=== PATIENT | male | born 1965 | race American Indian/Alaskan Native ===

== ENCOUNTER 2017-01-08 00:47 | Observation (INO) | payer OTHER ==
[2017-01-08 01:32] LABS: Hematocrit 51 % (42-52); Hemoglobin 17.4 g/dl (14.0-18.0); Mean Corpuscular HGB Conc 34 g/dl (31-36); Mean Corpuscular Hemoglobin 31 pg (27-31); Mean Corpuscular Volume 91 fL (80-94); Mean Platelet Volume 8 um3 (7.4-10.4); Red Blood Count 5.63 10^6/ul (4.0-5.4); Red Cell Distribution Width 14 % (10.5-15); White Blood Count 10.5 10^3/ul (3.5-10.8)
[2017-01-08 01:43] LABS: Albumin 4.3 g/dL (3.2-5.2); BUN/Creatinine Ratio 14.1 (8-20); Calcium 10.3 mg/dL (8.6-10.3); EGFR African American 40.8 (>60); EGFR Non-African American 31.7 (>60); Globulin 3.4 g/dL (2-4); Total Bilirubin 0.7 mg/dL (0.2-1.0); Total Protein 7.7 g/dL (6.4-8.9)
[2017-01-08 01:45] LABS: Troponin I 0.01 ng/mL (<0.04)
[2017-01-08 01:46] LABS: Potassium 6.2 mmol/L (3.5-5.0)
[2017-01-08] MEDS ORDERED: Sodium Polystyrene ORAL.SOL* 15 GM/60 ML BTL PO ONE (01:46)
[2017-01-08] MEDS ORDERED: NS 0.9% 500 ML BAG* 500 ML IV ONE (02:07)
[2017-01-08] MEDS ORDERED: Albuterol 2.5 MG/3 ML NEB.SOL* (0.083%) INH PRN (02:42)
[2017-01-08] MEDS ORDERED: Melatonin (NF) 3 MG TAB PO PRN (02:42)
[2017-01-08] MEDS ORDERED: Acetaminophen TAB* 325 MG PO PRN (02:42)
[2017-01-08] MEDS ORDERED: Ondansetron INJ* 2 MG/ML VIAL IV PRN (02:42)
[2017-01-08] MEDS ORDERED: NS 0.9% 1000 ML* 1,000 ML IV SCH (02:45)
[2017-01-08] MEDS: NS 0.9% 1000 ML* 1,000 ML IV SCH ×4 (02:55→21:56)
[2017-01-08 03:00] LABS: Urine Bacteria Absent (Absent); Urine Bilirubin Negative (Negative); Urine Glucose 3+(>=500 mg/dL) (Negative); Urine Nitrite Negative (Negative)
[2017-01-08] MEDS: traMADol TAB* 50 MG PO PRN ×2 (03:58→10:47)
[2017-01-08] MEDS ORDERED: ZOSYN 3.375 GM x ONE DOSE over 30 miuntes IVPB ×2 (04:00)
--- NOTE | 2017-01-08 04:23 | HP ---
H&P (Free Text) History and Physical: PCP: Katelyn Linton MD Date/Time of Evaluation: 01/07/2017 CC: chest pain HPI: Mr Pacheco is a 51YO male HX DM2, HTN, HLD, & YAMILKA who states he was in his usual state of health until this evening when going to be he developed some burning chest discomfort associated with subjective F/C, sweats, generalized weakness, and malaise. He has been exposed to family members recently with a similar illness. He denies open wound, sores, or painful areas of skin. There was no bloody or black content to his emesis. He denies B/U/F of urine or flank pain and state he has been urination a normal volume. PMedHx DM2 HTN HLD YAMILKA prescribed CPAP chronic LBP w/ sciatica gout Ambulatory Orders Allopurinol 300 mg PO DAILY 05/06/12 Fenofibrate 160 mg PO DAILY 05/13/12 Lisinopril & Hydrochlorothiazi [Lisinopril/Hydrochlorothi] 1 tab PO DAILY Magnesium Oxide (mg Supplement [Magnesium] 400 mg PO DAILY 02/24/13 Metformin HCl 1,000 mg PO BID 02/24/13 Hydrocodone/Acetamin 10/325(NF [[place] 10/325 (NF)] 0.5 tab PO QID PRN 05/31/13 Cyclobenzaprine TAB* [Flexeril TAB*] 10 mg PO TID PRN 04/04/14 Lisinopril 01/08/17 Lyrica CAP(*) 01/08/17 Allergies No Known Allergies Allergy (Verified 03/22/16 11:27) PSurgHx back surgery R thumb extensor tendon repair appendectomy hernia repair x2 SocHx: light smoker, occasional alcohol, denies recreational drugs; lives with his ; worked construction; full code status FamHx: positive for DM2 & HTN ROS: as above, otherwise reviewed and all were negative Constitutional: NAD, normally developed, morbidly obese white male vitals: Vital Signs Temp 37.5 C 01/08/17 03:43 Pulse 102 01/08/17 03:43 Resp 22 01/08/17 03:58 BP 99/74 01/08/17 03:43 Pulse Ox 98 01/08/17 03:43 Intake & Output 07/10/2101/07/17 01/08/17 11:59 23:59 11:59 Weight 142.882 kg HEENM: atraumatic; sclera/conjunctiva: non-icteric/clear; hearing: clinically intact; oropharynx: clear, mucosa tacky Neck: soft tissue: no nuchal rigidity; thyroid: normal Pulmonary: clear to auscultation bilaterally, good aeration, no accessory muscle use CV: RR/RR, normal S1S2, no carotid bruit, no jugular venous distention, 2+ B DP/ PT, no edema Abdominal: soft, non-distended, non-tender, no rebound/guarding/rigidity, normoactive bowel sounds, no hepatosplenomegaly or masses, no costovertebral angle tenderness Musculoskeletal: general: grossly intact; gait: stable Integumental: few small erythematous lesions BLE Psychiatric orientation: AA&O to PPS affect: calm mood: cooperative eye contact: fair to good content: reliable responses: timely insight: fair to good Testing: Ambulatory Orders Allopurinol 300 mg PO DAILY 05/06/12 Fenofibrate 160 mg PO DAILY 05/13/12 Lisinopril & Hydrochlorothiazi [Lisinopril/Hydrochlorothi] 1 tab PO DAILY Magnesium Oxide (mg Supplement [Magnesium] 400 mg PO DAILY 02/24/13 Metformin HCl 1,000 mg PO BID 02/24/13 Hydrocodone/Acetamin 10/325(NF [[place] 10/325 (NF)] 0.5 tab PO QID PRN 05/31/13 Cyclobenzaprine TAB* [Flexeril TAB*] 10 mg PO TID PRN 04/04/14 Lisinopril 01/08/17 Lyrica CAP(*) 01/08/17 ECG, personally reviewed: sinus tachycardia rate 105, no ischemia, Q-waves in II /III/AVF CXR, personally reviewed: no acute process Impression: 51M presenting with sepsis syndrome of uncertain source DIAGNOSIS & PLAN Primary sepsis of unknown source : IV piperacillin/tazobactam : IVFs : blood & urine CXs : supportive care chest discomfort, doubt ACS : telemetry : trend troponin Secondary DM2 : check A1c : consistent carb diet : basal/bolus/correctional insulin HTN : review meds once reconciled HLD : review meds once reconciled YAMILKA : prescribed CPAP chronic LBP w/ sciatica : review meds once reconciled gout : review meds once reconciled Admission Rational: inpatient for sepsis of unknown origin DVTp: heparin SQ Code Status: full HCP:
[2017-01-08 05:14] LABS: Hematocrit 47 % (42-52); Hemoglobin 15.7 g/dl (14.0-18.0); Mean Corpuscular HGB Conc 33 g/dl (31-36); Mean Corpuscular Hemoglobin 31 pg (27-31); Mean Corpuscular Volume 92 fL (80-94); Mean Platelet Volume 8 um3 (7.4-10.4); Red Cell Distribution Width 14 % (10.5-15)
[2017-01-08 05:19] LABS: Add Diff/Slide Review? Slide Review Added; Comments Flag Yes
[2017-01-08 05:27] LABS: BUN/Creatinine Ratio 15.6 (8-20); Calcium 9.6 mg/dL (8.6-10.3); EGFR African American 36.2 (>60); EGFR Non-African American 28.1 (>60); Potassium 5.5 mmol/L (3.5-5.0)
[2017-01-08] MEDS: Omeprazole CAP* 20 MG PO SCH (07:41)
--- NOTE | 2017-01-08 07:50 | RAD ---
INDICATION: Chest pain COMPARISON: Chest x-ray dated August 05, 2006 TECHNIQUE: PA and lateral views of the chest were obtained. FINDINGS: The heart and mediastinum are normal in size and contour. The lungs are grossly clear. There is no evidence of large pleural effusion. Degenerative changes of the thoracic spine includes loss of intervertebral disc height and multilevel anterior marginal osteophyte formation. There is no radiographic evidence of free air beneath the diaphragm IMPRESSION: No radiographic evidence of acute cardiopulmonary disease.
[2017-01-08] MEDS: Insulin LISPRO* 1 UNITS UNIT SUBCUT SCH ×7 (08:43→20:57)
[2017-01-08] MEDS: Docusate CAP* 100 MG PO SCH ×2 (08:44→20:56)
[2017-01-08 14:54] LABS: BUN/Creatinine Ratio 22.1 (8-20); Calcium 8.3 mg/dL (8.6-10.3); EGFR African American 63.9 (>60); EGFR Non-African American 49.7 (>60); Potassium 3.7 mmol/L (3.5-5.0)
--- NOTE | 2017-01-08 15:28 | PN ---
Subjective Date of Service: 01/08/17 Interval History: Feels better today but still fatigued. No pain Minimal nausea this AM but no emesis. Loose stools this AM after kayexalate Objective Active Medications: Acetaminophen (Tylenol Tab*) 650 mg PO Q6H PRN PRN Reason: FEVER/PAIN Albuterol (Ventolin 2.5 Mg/3 Ml Neb.Lena*) 2.5 mg INH Q2H PRN PRN Reason: SOB/WHEEZING Docusate Sodium (Colace Cap*) 200 mg PO BID [facility] Last Admin: 01/08/17 08:44 Dose: Not Given Heparin Sodium (Porcine) (Heparin Vial(*)) 5,000 units SUBCUT Q8HR [facility] Sodium Chloride (Ns 0.9% 1000 Ml*) 1,000 mls @ 150 mls/hr IV PER RATE [facility] Stop: 01/09/17 19:39 Last Admin: 01/08/17 13:41 Dose: 150 mls/hr Insulin Glargine (Lantus(*)) 34 units SUBCUT 2100 [facility] Stop: 01/09/17 20:00 Insulin Human Lispro (Humalog*) 0 units SUBCUT AC [facility] PRN Reason: Protocol Last Admin: 01/08/17 12:49 Dose: 6 units Insulin Human Lispro (Humalog*) 0 units SUBCUT ACHS [facility] PRN Reason: Protocol Last Admin: 01/08/17 12:49 Dose: 3 units Melatonin (Melatonin (Nf)) 3 mg PO BEDTIME PRN; Protocol PRN Reason: Sleep Omeprazole (Prilosec Cap*) 20 mg PO DAILY@0600 [facility] Last Admin: 01/08/17 07:41 Dose: 20 mg Ondansetron HCl (Zofran Inj*) 4 mg IV Q6H PRN PRN Reason: NAUSEA Tramadol HCl (Ultram*) 50 mg PO Q6H PRN PRN Reason: PAIN Last Admin: 01/08/17 10:47 Dose: 50 mg Vital Signs 01/08/17 01/08/17 01/08/17 03:40 03:43 03:58 Temperature 99.5 F 99.5 F Pulse Rate 102 102 Respiratory 16 16 22 Rate Blood Pressure 99/74 99/74 (mmHg) O2 Sat by Pulse 98 98 Oximetry 01/08/17 01/08/17 01/08/17 05:58 07:22 08:30 Temperature 98.9 F Pulse Rate 99 Respiratory 18 24 Rate Blood Pressure 86/59 102/60 (mmHg) O2 Sat by Pulse 95 Oximetry 01/08/17 01/08/17 01/08/17 08:40 10:47 11:37 Temperature 99.8 F Pulse Rate 93 90 Respiratory 20 22 20 Rate Blood Pressure 98/56 (mmHg) O2 Sat by Pulse 95 100 Oximetry 01/08/17 12:47 Temperature Pulse Rate Respiratory 16 Rate Blood Pressure (mmHg) O2 Sat by Pulse Oximetry Oxygen Devices in Use Now: None Appearance: NAD Eyes: No Scleral Icterus, PERRLA Ears/Nose/Mouth/Throat: Clear Oropharnyx, Mucous Membranes Moist Neck: NL Appearance and Movements; NL JVP, Trachea Midline Respiratory: Symmetrical Chest Expansion and Respiratory Effort, Clear to Auscultation Cardiovascular: NL Sounds; No Murmurs; No JVD, RRR Abdominal: NL Sounds; No Tenderness; No Distention Lymphatic: No Cervical Adenopathy Extremities: No Edema Skin: No Rash or Ulcers Neurological: Alert and Oriented x 3, NL Muscle Strength and Tone Result Diagrams: 01/08/17 04:48 01/08/17 14:16 Assess/Plan/Problems-Billing Assessment: 51 yo M h/o HTN, HLD, DM2, YAMILKA, gout p/w N/V, evidence of dehydration and AKF - Patient Problems (1) Acute kidney failure Comment: Contacted Dr. Linton's office. Last creatinine was 0.8 in September Creatinine improving with IV fluids no urinary retention, suspect dehydration c/w normal saline x 2 additional liters in setting of N/V and recent sick contact with grandson with similar symptoms suspect gastroenteritis contributing to dehydration and renal failure (2) Hyperkalemia Comment: In setting of AKF Resolved with calcium and kayexalate (3) Lactic acidosis Comment: Suspect 2/2 dehydration, AKF, and metformin use with new AKF c/w fluids and recheck in AM (4) Hypertension Comment: Low BP while holding meds continue to trend (5) Diabetes Comment: Basal and bolus insulin hba1c 8.2% (6) DVT prophylaxis Comment: HSQ
[2017-01-08] MEDS ORDERED: Insulin GLARGINE(*) 1 UNITS UNIT SUBCUT SCH (21:00)
[2017-01-09 05:50] LABS: Hematocrit 41 % (42-52); Hemoglobin 13.9 g/dl (14.0-18.0); Mean Corpuscular HGB Conc 34 g/dl (31-36); Mean Corpuscular Hemoglobin 31 pg (27-31); Mean Corpuscular Volume 91 fL (80-94); Mean Platelet Volume 8 um3 (7.4-10.4); Red Blood Count 4.47 10^6/ul (4.0-5.4); Red Cell Distribution Width 14 % (10.5-15); White Blood Count 4.5 10^3/ul (3.5-10.8)
[2017-01-09] MEDS: Omeprazole CAP* 20 MG PO SCH (05:57)
[2017-01-09] MEDS: Heparin VIAL(*) 5000 UNITS/ML VIAL (FIVE THOUSAND) SUBCUT SCH ×2 (05:57→14:58)
[2017-01-09 06:04] LABS: BUN/Creatinine Ratio 18.1 (8-20); Calcium 8.5 mg/dL (8.6-10.3); EGFR African American 108.8 (>60); EGFR Non-African American 84.6 (>60); Potassium 3.5 mmol/L (3.5-5.0)
[2017-01-09] MEDS: Insulin LISPRO* 1 UNITS UNIT SUBCUT SCH ×4 (08:53→13:13)
[2017-01-09] MEDS: Docusate CAP* 100 MG PO SCH (08:54)
[2017-01-09 11:48] VITALS: BP 106/74
--- NOTE | 2017-01-10 01:28 | DS ---
CC: Dr. Anna Linton* DISCHARGE SUMMARY: DATE OF ADMISSION: 01/07/17 DATE OF DISCHARGE: 01/09/17 PRIMARY CARE PROVIDER: Dr. Anna Linton. PRIMARY DIAGNOSES: 1. Acute kidney failure. 2. Hyperkalemia. SECONDARY DIAGNOSES: Include: 1. Hypertension. 2. Hyperlipidemia. 3. Obstructive sleep apnea. 4. Gout. 5. Type 2 diabetes. 6. Atrial fibrillation. MEDICATIONS ON DISCHARGE: 1. Lisinopril 20 mg daily. 2. Pravachol 80 mg daily. 3. TriCor 160 mg daily. 4. Allopurinol 300 mg daily. 5. Xarelto 20 mg daily. 6. Metformin 1000 mg twice daily. 7. Metoprolol succinate 50 mg daily. 8. Insulin glargine 34 units in the evening. Please note the decreased dose of metoprolol from 100 to 50 mg, discontinuation of hydrochlorothiazide. PERTINENT LABORATORY DATA: Creatinine on presentation 2.2, on discharge 2.94; BUN on presentation 31, peaked at 38, on discharge 17; white blood cell count on discharge 4.8. PERTINENT MICROBIOLOGY: Negative urine culture twice and negative blood culture. PERTINENT IMAGING: Chest x-ray, no evidence for cardiopulmonary disease. HISTORY OF PRESENT ILLNESS AND HOSPITAL COURSE: This is a 51-year-old man, past medical history as outlined in the history of present illness on the day of admission presented to the hospital with subjective fevers, chills, sweats, generalized weakness and malaise, found with acute kidney failure as well as relative hypotension with systolic blood pressures in 90s. The patient was started on Zosyn overnight on the evening of admission, was discontinued the following day with negative blood cultures, urine cultures and absence of leukocytosis and no fevers during the entire course of the hospital stay. The patient was kept in the hospital given his relatively low blood pressures in the low 90s. On his first day of hospital admission and his new diagnosis of acute kidney failure, he retaining urine on a postvoid bladder scan and was treated with crystalloid replacement. With approximately 6 L of fluid over 48 hours, the patient's kidney function completely resolved. He felt back to his baseline. Of note, he had a lactic acidosis of 2.5 on presentation, resolved to 0.6. It was felt that his metformin likely contributed to his lactic acidosis in the setting of acute kidney failure. The patient indicates that he had nausea, vomiting prior to presentation. Suspect that the gastroenteritis contributed to dehydration leading to acute kidney failure as well as hyperkalemia. Potassium on the day of discharge was 3.5. There were no other complications of this patient's hospital stay. Please note on the day of discharge, his blood pressure was ranging 106 to 124 with diastolics in the 70s. For this reason, his metoprolol was cut in half and his hydrochlorothiazide was discontinued on discharge. At followup, please: 1. Please follow up for continued blood pressure control on new blood pressure regimen. 2. Follow up with diabetes control on current regimen. 3. Follow up blood cultures to completion, currently negative at 36 hours. Reasons to return to the hospital included, but not limited to recurrent or worsening symptoms, chills, fevers, night sweats, nausea, vomiting, lightheadedness, loss of consciousness, chest pain, shortness of breath, diarrhea, bleeding from any source, inability to obtain or tolerate his medications were discussed with the patient, he acknowledged understanding. TIME SPENT: Greater than 60 minutes were spent on the discharge of this patient , greater than half was spent [id number] with the patient. [id number]/[facility] #: [id number] JUDY
== END 2017-01-09 16:50 | disposition home or self-care (01) ==
LOC: ED 00:47 → MEDTELE 02:38
PROVIDERS: ADMIT Hospitalist; ATTEND Internal Medicine
DX: N17.9 Acute kidney failure, unspecified (principal); E87.5 Hyperkalemia; E86.0 Dehydration; R07.9 Chest pain, unspecified; E11.9 Type 2 diabetes mellitus without complications; Z79.4 Long term (current) use of insulin; Z79.84 Long term (current) use of oral hypoglycemic drugs; G47.33 Obstructive sleep apnea (adult) (pediatric); M10.9 Gout, unspecified; I48.91 Unspecified atrial fibrillation; I10 Essential (primary) hypertension; R53.81 Other malaise; F17.200 Nicotine dependence, unspecified, uncomplicated; M54.40 Lumbago with sciatica, unspecified side
CPT/HCPCS: 36415; 71020; 80048; 80053; 81003; 81015; 82550; 83036; 83605; 84484; 85025; 87040; 87086; 87641; 93005; 96365; 96366; 96367; 96372; 99283; A9270-GY; G0378; J0610; J1644; J2543

== ENCOUNTER 2018-12-16 12:11 | Emergency (ER) | payer OTHER ==
[2018-12-16 12:33] VITALS: BP 97/71
--- NOTE | 2018-12-16 12:46 | UC ---
General HPI - HPI Summary HPI Summary: Patient's a 53-year-old dominant with complex medical history including atrial fibrillation, hypertension, diabetes, chronic back pain status post a fusion. Patient is on blood pressure medicine as well as Lyrica, Vicodin, and Flexeril for his back. Patient presents today stating for the last 2 days he's had feeling very dizziness. Patient states he notices it mostly when he first stands up however last night he was walking across a chair when he fell because he was dizzy. No injury related to the fall. Patient was able to get up on his own. Patient states he felt with good night's rest to feel better but continues to feel dizzy today. Patient denies having overheated. Patient states he good urine. Patient states this happened once before when his potassium level was very low. Patient also reports she's been having some left- sided chest pain. Patient states it wraps from the front of her back. Patient states he fell 3 weeks ago when he tripped on a fan in the dark and thought maybe interloop. Patient unable to tell me if this chest pain is different than the rib pain but states it is bothering him more frequently. Patient states she's had a diagnosis of angina but is not on nitroglycerin. 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 Patient states he has not taken . Medications reviewed this visit. - History of Current Complaint Chief Complaint: UCDizziness Stated Complaint: DIZZY Time Seen by Provider: 12/16/18 12:30 Hx Obtained From: Patient Pain Intensity: 0 - Allergy/Home Medications Allergies/Adverse Reactions: Allergies Allergy/AdvReac Type Severity Reaction Status Date / Time No Known Allergies Allergy Verified 12/16/18 12:34 PMH/Surg Hx/FS Hx/Imm Hx Previously Healthy: Yes Endocrine History: Diabetes, Dyslipidemia Cardiovascular History: Hypertension, Atrial Fibrillation - Surgical History Surgical History: Yes Surgery Procedure, Year, and Place: Bilateral Inguinal Hernia Repair; Appendectomy; Spinal Fusion L4-L5; Left ACL Reconstruction - Family History Known Family History: Positive: Diabetes - Social History Occupation: Employed Part-time Alcohol Use: Weekly - several times a week Substance Use Type: None Smoking Status (MU): Former Smoker Type: Cigarettes Have You Smoked in the Last Year: No When Did the Patient Quit Smoking/Using Tobacco: One year ago Review of Systems All Other Systems Reviewed And Are Negative: Yes Skin: Positive: Bruising Eyes: Positive: Negative ENT: Positive: Negative Respiratory: Positive: Negative Cardiovascular: Positive: Chest Pain Gastrointestinal: Positive: Negative Genitourinary: Positive: Negative Neurological: Positive: Other - dizziness Physical Exam - Summary Physical Exam Summary: Vital Signs Reviewed: Yes A+Ox3, no distress Eyes: Conjunctiva Clear, ENT: Hearing grossly normal Neck: Positive: Supple Respiratory: Positive: No respiratory distress, No accessory muscle use + CTA throughout no w/r Cardiovascular: RRR nl s1, s2 no m/r CBT <2 sec, no bruits, + mild TTP left anterior chest wall - no crepitus, no bruising (pt unsure is same pain causing chest pain) abd soft + NT, + BS Musculoskeletal Exam: GARCIA x 4 without difficulty Strength Intact, ROM Intact Neurological: Positive: Alert, + sensation throughout Psychological: Positive: Normal Response To Family Skin: Positive: no rash, no ecchymosis Triage Information Reviewed: Yes Vital Signs: Initial Vital Signs Temp 98.4 F 12/16/18 12:30 Pulse 92 12/16/18 12:30 Resp 18 12/16/18 12:30 BP 97/71 12/16/18 12:30 Pulse Ox 99 12/16/18 12:30 Diagnostics - EKG Cardiac Rate: NL Cardiac Rhythm: Sinus: Normal Ectopy: None ST Segment: Normal EKG Comparison: No Significant Change Course/Dx - Course Course Of Treatment: PT presents to reports 2 days of progressive dizzines s- starting with positin changes, now constant. Pt states he has left sided chest pain, extends to back. States fatigue. Pt with h/o simiar when his potassium was "very low" Pt had friend drop him here - otherwise e would have gone to the hospital Vital signs - pt with low BP Pt without focal findings other than reproducible chest pain Will check BG, EKG, IV recommend pt to ED by EMS - pt in agreement - Diagnoses Provider Diagnosis: Dizziness, Hypotension, Chest pain Discharge - Sign-Out/Discharge Documenting (check all that apply): Patient Departure All imaging exams completed and their final reports reviewed: No Studies - Discharge Plan Condition: Stable Disposition: TRANS HIGHER [facility]ARE FAC Referrals: Anna Linton MD [Primary Care Provider] - - Billing Disposition and Condition Condition: STABLE Disposition: Trans Higher Lvl of Care Fac
[2018-12-16] MEDS ORDERED: Aspirin 81 mg CHEW TAB* 81 MG TAB.CHEW PO ONE (12:55)
== END 2018-12-16 13:41 | disposition short-term general hospital (02) ==
LOC: UCEAST 12:11
DX: R42 Dizziness and giddiness (principal); I10 Essential (primary) hypertension; R07.9 Chest pain, unspecified; I48.91 Unspecified atrial fibrillation; E78.5 Hyperlipidemia, unspecified; Z98.1 Arthrodesis status; Z87.891 Personal history of nicotine dependence
CPT/HCPCS: 93005; 99203; A9270-GY; G0463

== ENCOUNTER 2018-12-16 13:43 | Emergency (ER) | payer OTHER ==
[2018-12-16] MEDS ORDERED: NS 0.9% 1000 ML** 1,000 ML IV ONE ×2 (13:58→14:54)
--- NOTE | 2018-12-16 14:04 | ED ---
Dizziness - HPI Summary HPI Summary: Pt is a 53 y/o M presenting to the ED with a chief complaint of dizziness initially onset yesterday. He states his blood pressure is low and he has experienced intermittent dizziness, described as feeling lightheaded, since 12/15. He reports some myalgia from a recent fall, as well as some blurred vision. He denies SOB, N/V/D, and abd pain. He states he took the correct dose of his BP med, 20mg Lisinopril, and that he does not monitor his BP at home. - History Of Current Complaint Chief Complaint: EDDizziness Stated Complaint: DIZZY COMMING FROM CC Time Seen by Provider: 12/16/18 13:49 Hx Obtained From: Patient Onset/Duration: Still Present, Suddenly Timing: Intermittent Episode Lasting - minutes Severity Initially: Moderate Severity Currently: Mild Character: Lightheaded Aggravating Factor(s): Nothing Alleviating Factor(s): Nothing Associated Signs And Symptoms: Positive: Visual Changes - some blurred vision. Negative: Nausea, Vomiting, Diarrhea, SOB, Change In Medication, Blood In Stool - Allergies/Home Medications Allergies/Adverse Reactions: Allergies Allergy/AdvReac Type Severity Reaction Status Date / Time No Known Allergies Allergy Verified 12/16/18 14:37 Home Medications: Home Medications Cyclobenzaprine TAB* [Flexeril 10 MG TAB*] 10 mg PO TID PRN 12/16/18 [History Confirmed 12/16/18] Dulaglutide (NF) [Trulicity (NF)] 0.75 mg SUBCUT WEEKLY 12/16/18 [History Confirmed 12/16/18] Fenofibrate Nanocrystallized [Fenofibrate] 160 mg PO DAILY 12/16/18 [History Confirmed 12/16/18] Hydrocodone/Acetamin 10/325(NF [[place] 10/325 (NF)] 1 tab PO Q6H PRN 12/16/18 [ History Confirmed 12/16/18] Lisinopril TAB* [Prinivil TAB*] 20 mg PO DAILY 12/16/18 [History Confirmed 12/16] Metoprolol Succinate XL TAB* [Toprol XL TAB*] 100 mg PO DAILY 12/16/18 [History Confirmed 12/16/18] Pravastatin (NF) [Pravachol (NF)] 80 mg PO DAILY 12/16/18 [History Confirmed 06/24] Pregabalin CAP(*) [Lyrica CAP(*)] 75 mg PO TID MDD 225mg 12/16/18 [History Confirmed 12/16/18] metFORMIN* [Glucophage 1000 MG TAB *] 1,000 mg PO BID 12/16/18 [History Confirmed 12/16/18] PMH/Surg Hx/FS Hx/Imm Hx Previously Healthy: Yes Endocrine/Hematology History: Reports: Hx Diabetes - Borderline Diabetes Denies: Hx Thyroid Disease Cardiovascular History: Reports: Hx Hypertension - on meds Respiratory History: Denies: Hx Asthma, Hx Chronic Obstructive Pulmonary Disease (COPD) GI History: Denies: Hx Ulcer Musculoskeletal History: Reports: Hx Back Problems, Hx Gout, Other Musculoskeletal History - Chronic Leg Pain Denies: Hx Rheumatoid Arthritis, Hx Osteoporosis Sensory History: Denies: Hx Contacts or Glasses, Hx Hearing Aid Opthamlomology History: Denies: Hx Contacts or Glasses Neurological History: Reports: Other Neuro Impairments/Disorders - CHRONIC PAIN Psychiatric History: Reports: Hx Attention Deficit Hyperactivity Disorder - Attention Deficit Disorder - Surgical History Surgery Procedure, Year, and Place: Bilateral Inguinal Hernia Repair; Appendectomy; Spinal Fusion L4-L5; Left ACL Reconstruction Infectious Disease History: No Infectious Disease History: Reports: Hx of Known/Suspected MRSA Denies: Hx Hepatitis, Hx Human Immunodeficiency Virus (HIV), History Other Infectious Disease, Traveled Outside the [place] in Last 30 Days - Family History Known Family History: Positive: Diabetes - Social History Alcohol Use: Weekly Hx Substance Use: No Substance Use Type: Reports: None Hx Tobacco Use: Yes Smoking Status (MU): Former Smoker Type: Cigarettes Have You Smoked in the Last Year: No Review of Systems Positive: Blurred Vision Negative: Shortness Of Breath Negative: Abdominal Pain, Vomiting, Diarrhea, Nausea Positive: Myalgia All Other Systems Reviewed And Are Negative: Yes Physical Exam - Summary Physical Exam Summary: Appearance: obese, no pain distress Skin: warm, dry, reflects adequate perfusion Head/face: normal Eyes: EOMI, JOSE ENT: mucous membranes moist Neck: supple, non-tender Respiratory: CTA, breath sounds present Cardiovascular: RRR, pulses symmetrical Abdomen: non-tender, soft Bowel Sounds: present Musculoskeletal: normal, strength/ROM intact Neuro: normal, sensory motor intact, A&Ox3 Triage Information Reviewed: Yes Vital Signs On Initial Exam: Initial Vitals Temp Pulse Resp BP Pulse Ox 96.8 F 86 16 96/67 96 12/16/18 13:52 12/16/18 13:52 12/16/18 13:52 12/16/18 13:52 12/16/18 13:52 Vital Signs Reviewed: Yes Diagnostics - Vital Signs Vital Signs Temp Pulse Resp BP Pulse Ox 12/16/18 13:52 96.8 F 86 16 96/67 96 - Laboratory Result Diagrams: 12/16/18 14:28 12/16/18 14:28 Lab Statement: Any lab studies that have been ordered have been reviewed, and results considered in the medical decision making process. - EKG 1421 Cardiac Rate: NL - 81bpm EKG Rhythm: Sinus Rhythm ST Segment: Normal Ectopy: None Summary of EKG Findings: Normal EKG. NSR: 81bpm. Normal [place]. Normal Interval. Normal ST Dizzy Course/Dx - Course Course Of Treatment: Nurse's notes reviewed. 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 He has elevation of creatinine consistent with dehydration/medication acute kidney injury. Patient received 2 L of IV fluids and his blood pressure was about 110 systolic. He ambulated without any lightheadedness. He will discontinue the lisinopril and hold the metformin. Lisinopril was replaced with losartan. He is encouraged to follow-up with his doctor in the next 2 days. - Diagnoses Differential Diagnosis/HQI/PQRI: Medication Reaction, Metabolic Abnormality, Transient Ischemic Attack, Vasovagal Reaction Provider Diagnoses: Acute kidney failure, Dehydration Discharge - Sign-Out/Discharge Documenting (check all that apply): Patient Departure Patient Received Moderate/Deep Sedation with Procedure: No - Discharge Plan Condition: Improved Disposition: HOME Prescriptions: Losartan Potassium [Cozaar] 50 mg PO DAILY #30 tablet Patient Education Materials: Acute Kidney Injury (DC) Forms: *Work Release Referrals: Anna Linton MD [Primary Care Provider] - Additional Instructions: STOP Lisinopril. HOLD your Metformin for 3 days. Drink lots of fluids. Stay out of the heat. Avoid ibuprofen, Aleve and other anti-inflammatory medications. Avoid alcohol. Call your doctor today to schedule prompt follow- up. Off work for the next 2 days. Return if worse, new symptoms, passing out or other concerns. - Billing Disposition and Condition Condition: IMPROVED Disposition: Home - Attestation Statements Document Initiated by Sylviaibale: Yes Documenting Scribe: Kayla Vila Provider For Whom Alannah is Documenting (Include Credential): Delon Sloan MD. Scribe Attestation: Kayla Prakash, scribed for Delon Sloan MD. on 12/16/18 at 1754. Scribe Documentation Reviewed: Yes Provider Attestation: The documentation as recorded by the sylviaibale, Kayla Vila accurately reflects the service I personally performed and the decisions made by , Delon Sloan MD. Status of Scribe Document: Viewed
[2018-12-16 14:33] LABS: Urine Appearance Clear; Urine Bilirubin Negative (Negative); Urine Blood Negative (Negative); Urine Color Yellow; Urine Glucose Negative (Negative); Urine Ketones Negative (Negative); Urine Nitrite Negative (Negative); Urine Protein Negative (Negative); Urine Specific Gravity 1.009 (1.010-1.030); Urine Urobilinogen Negative (Negative)
[2018-12-16 14:36] LABS: ABS Eosinophils 0.3 10^3/ul (0-0.6); ABS Lymphocytes 2.8 10^3/ul (1.0-4.8); ABS Monocytes 0.6 10^3/ul (0-0.8); ABS Neutrophils 7.9 10^3/ul (1.5-7.7); Eosinophil % 2.3 %; Hematocrit 41 % (42-52); Hemoglobin 14.2 g/dL (14.0-18.0); Lymphocyte % 24.1 %; Mean Corpuscular HGB Conc 35 g/dL (31-36); Mean Corpuscular Hemoglobin 31 pg (27-31); Mean Corpuscular Volume 90 fL (80-94); Mean Platelet Volume 8.4 fL (7.4-10.4); Nucleated Red Blood Cells % 0.1; Platelet Count 270 10^3/uL (150-450); Red Blood Count 4.57 10^6 /uL (4.18-5.48); Red Cell Distribution Width 13 % (10-15); White Blood Count 11.6 10^3/uL (3.5-10.8)
[2018-12-16 14:53] LABS: ALT 35 U/L (7-52); AST 26 U/L (13-39); Albumin 4.1 g/dL (3.2-5.2); Albumin/Globulin Ratio 1.4 (1-3); Alkaline Phosphatase 87 U/L (34-104); Anion Gap 10 mmol/L (2-11); BUN/Creatinine Ratio 16.7 (8-20); Blood Urea Nitrogen 27 mg/dL (6-24); CO2 Carbon Dioxide 22 mmol/L (22-32); Calcium 9.9 mg/dL (8.6-10.3); Chloride 98 mmol/L (101-111); Creatine Kinase 174 U/L (10-223); EGFR African American 54.2 (>60); EGFR Non-African American 44.8 (>60); Globulin 2.9 g/dL (2-4); Glucose 100 mg/dL (70-100); Magnesium 1.6 mg/dL (1.9-2.7); Potassium 4.3 mmol/L (3.5-5.0); Sodium 130 mmol/L (135-145)
[2018-12-16 15:25] LABS: Alcohol < 10 mg/dL (<10)
[2018-12-16 16:09] VITALS: BP 104/66
== END 2018-12-16 16:19 | disposition home or self-care (01) ==
LOC: ED 13:43
DX: N17.9 Acute kidney failure, unspecified (principal); E86.0 Dehydration; E11.9 Type 2 diabetes mellitus without complications; I10 Essential (primary) hypertension; Z79.84 Long term (current) use of oral hypoglycemic drugs; Z79.899 Other long term (current) drug therapy; Z87.891 Personal history of nicotine dependence
CPT/HCPCS: 36415; 80053; 80320; 81003; 82550; 83735; 84100; 84484; 85025; 93005; 96360; 96361; 99283; G0480

== ENCOUNTER 2019-04-28 15:39 | Emergency (ER) | payer OTHER ==
[2019-04-28] MEDS ORDERED: methylPREDNISolone 125 MG* 2 ML VIAL IV ONE (15:44)
[2019-04-28] MEDS ORDERED: diPHENhydraMINE IV* 50 MG/ML 1 ml VIAL (BENADRYL) IV ONE (15:44)
[2019-04-28] MEDS ORDERED: Famotidine IV* 10 MG/ML 2 ML (20 mg) IV SLOW PU ONE ×2 (15:44→15:54)
[2019-04-28] MEDS ORDERED: NS 0.9% 1000 ML** 1,000 ML IV ONE (16:09)
--- NOTE | 2019-04-28 16:20 | UC ---
Allergic Reaction HPI - HPI Summary HPI Summary: 53-year-old male comes in with a chief complaint of a bee sting to the right wrist. Patient reports she's had an allergic reaction in the past where he's needed emergency room visit for facial swelling and difficulty breathing. At this time is not having any shortness of breath or difficulty breathing throat closing. The erythema from the bite is localized to the right wrist. - History of Current Complaint Stated Complaint: BEE STING, ALLERGIC Time Seen by Provider: 04/28/19 15:44 - Allergies/Home Medications Allergies/Adverse Reactions: Allergies Allergy/AdvReac Type Severity Reaction Status Date / Time gabapentin Allergy Severe severly Verified 04/28/19 16:18 anxious PMH/Surg Hx/FS Hx/Imm Hx Previously Healthy: Yes Endocrine History: Diabetes, Dyslipidemia Cardiovascular History: Hypertension - Surgical History Surgical History: Yes Surgery Procedure, Year, and Place: Bilateral Inguinal Hernia Repair; Appendectomy; Spinal Fusion L4-L5; Left ACL Reconstruction - Family History Known Family History: Positive: Diabetes - Social History Alcohol Use: Weekly Substance Use Type: None Smoking Status (MU): Former Smoker Type: Cigarettes Have You Smoked in the Last Year: No When Did the Patient Quit Smoking/Using Tobacco: One year ago Review of Systems All Other Systems Reviewed And Are Negative: Yes Constitutional: Positive: Negative Skin: Positive: Other - SEE HPI Eyes: Positive: Negative ENT: Positive: Negative Respiratory: Positive: Negative Cardiovascular: Positive: Negative Gastrointestinal: Positive: Negative Motor: Positive: Negative Neurovascular: Positive: Negative Musculoskeletal: Positive: Negative Neurological: Positive: Negative Psychological: Positive: Negative Is Patient Immunocompromised?: No Physical Exam Triage Information Reviewed: Yes Appearance: Well-Appearing, No Pain Distress, Well-Nourished Vital Signs Reviewed: Yes Eye Exam: Normal Eyes: Positive: Conjunctiva Clear ENT: Positive: Pharynx normal. Negative: Muffled voice, Hoarse voice Neck: Positive: Supple Respiratory: Positive: Lungs clear, Normal breath sounds, No respiratory distress Cardiovascular: Positive: RRR Musculoskeletal: Positive: Strength Intact, ROM Intact Neurological: Positive: Alert, Muscle Tone Normal Psychological: Positive: Age Appropriate Behavior Skin: Positive: Other - There is a 6 cm x 3 cm area of erythema on the palmar aspect of the right wrist. It's blanching I don't see any bee sting still present. No streaking. Allergic Reaction Course/Dx - Course Course Of Treatment: In clinic patient was given Benadryl 50 mg IV Pepcid 20 mg IV and Solu-Medrol 125 mg IV. The area of the reaction stayed at the patient's wrist. No difficulty with breathing or swallowing. Patient is being discharged and he can continue using Benadryl Pepcid and a steroid if needed. Also wrote another prescription for EpiPen.. Patient gets worse he is to get reevaluated if he has any airway issues he's go to the emergency department. - Differential Dx/Diagnosis Provider Diagnosis: Bee sting allergy Discharge ED - Sign-Out/Discharge Documenting (check all that apply): Patient Departure All imaging exams completed and their final reports reviewed: No Studies - Discharge Plan Condition: Stable Disposition: HOME Prescriptions: EPINEPHrine [Epipen 2-Lenny] 0.3 mg IM ONCE #1 inj Famotidine TAB* [Pepcid 20 MG TAB*] 20 mg PO BID PRN #8 tab PRN Reason: Allergy Symptoms predniSONE TAB* [Deltasone 20 MG TAB*] 40 mg PO DAILY PRN #8 tab PRN Reason: Allergy Symptoms Patient Education Materials: Insect Bite or Sting (ED), General Allergic Reaction (ED) Referrals: Anna Linton MD [Primary Care Provider] - Additional Instructions: FOLLOW UP WITH YOUR DOCTOR IF NOT COMPLETELY IMPROVED. TAKE BENADRYL 50MG EVERY 6 HOURS NEEDED. TAKE PEPCID 20MG TWICE A DAY NEEDED. TAKE THE PREDNISONE DIRECTED NEEDED. Use the EpiPen as needed for severe allergic reaction to include reaction involving her airway or throat. If you do use the EpiPen seek further evaluation and care at the nearest emergency department. GO TO THE EMERGENCY DEPARTMENT IF YOUR CONDITION WORSENS OR ANY QUESTIONS OR CONCERNS. - Billing Disposition and Condition Condition: STABLE Disposition: Home
[2019-04-28 18:41] VITALS: BP 139/95
== END 2019-04-28 17:00 | disposition home or self-care (01) ==
LOC: UCEAST 15:39
DX: T63.441A Toxic effect of venom of bees, accidental (unintentional), initial encounter (principal); E11.9 Type 2 diabetes mellitus without complications; I10 Essential (primary) hypertension; Z83.3 Family history of diabetes mellitus; Z88.8 Allergy status to other drugs, medicaments and biological substances; Z87.891 Personal history of nicotine dependence; Y92.9 Unspecified place or not applicable
CPT/HCPCS: 96360; 96365; 96374; 96375; 99212; G0463; J1200; J2930

== ENCOUNTER 2022-07-04 17:13 | Observation (INO) ==
[2022-07-04] MEDS ORDERED: fentaNYL 100 mcg/2 ml 50 MCG/ML VIAL ONE (17:23)
[2022-07-04] MEDS ORDERED: Midazolam 5 mg/5 ml VIAL 1 mg/ml 5 ml VIAL (5 mg) ONE (17:23)
[2022-07-04] MEDS ORDERED: VERAPAMIL 2.5 MG/ML 2 ML VIAL ** 5 mg/2 ml ONE (17:24)
[2022-07-04] MEDS ORDERED: nitroGLYCERIN DRIP 25,000 MCG/250 ML BTL ONE (17:24)
[2022-07-04] MEDS ORDERED: Heparin 2 UNITS/ML 1000 mls 3,000 ML IV ONE (17:24)
[2022-07-04] MEDS ORDERED: Heparin 1,000 UNIT/ML 10 ml (10,000 UNITS) CATHLAB/DIALYSIS ONE (17:24)
[2022-07-04] MEDS ORDERED: Lidocaine 1% MPF 5 ML VIAL ONE (17:24)
[2022-07-04] MEDS ORDERED: Iohexol 350 (CONTRAST) 100 ML PAK IV ONE (17:25)
[2022-07-04] MEDS ORDERED: Metoprolol Tartrate 5 mg VIAL 5 ml VIAL (1 mg/ml) IV ONE (17:36)
[2022-07-04 17:41] LABS: ABS Basophils 0.1 10^3/ul (0-0.2); ABS Eosinophils 0.2 10^3/ul (0-0.6); ABS Lymphocytes 2.9 10^3/ul (1.0-4.8); ABS Monocytes 0.8 10^3/ul (0-0.8); ABS Neutrophils 5.1 10^3/ul (1.5-7.7); Eosinophil % 1.8 %; Hematocrit 47 % (42-52); Hemoglobin 15.8 g/dL (14.0-18.0); Lymphocyte % 32.4 %; Mean Corpuscular HGB Conc 33 g/dL (31-36); Mean Corpuscular Hemoglobin 31 pg (27-31); Mean Corpuscular Volume 92 fL (80-94); Mean Platelet Volume 7.8 fL (7.4-10.4); Platelet Count 194 10^3/uL (150-450); Red Blood Count 5.13 10^6 /uL (4.18-5.48); Red Cell Distribution Width 14 % (10-15); White Blood Count 9.1 10^3/uL (3.5-10.8)
[2022-07-04 17:56] LABS: Albumin 4.1 g/dL (3.2-5.2); Calcium 9.1 mg/dL (8.6-10.3); Potassium 3.9 mmol/L (3.5-5.0); Total Bilirubin 0.3 mg/dL (0.2-1.0)
[2022-07-04 18:02] LABS: Albumin/Globulin Ratio 1.6 (1-3); Globulin 2.6 g/dL (2-4); Total Protein 6.7 g/dL (6.4-8.9); eGFR CKD-EPI 82.4 (>60)
[2022-07-04] MEDS ORDERED: Amiodarone 150 mg IVPREMIX 150 MG/100 ML BAG IV ONE (18:06)
[2022-07-04] MEDS ORDERED: Bivalirudin 250 MG VIAL ONE ×2 (18:15→18:16)
[2022-07-04] MEDS ORDERED: Amiodarone 360 MG IVPREMIX 0 MG/0 ML BAG IV ONE (18:17)
[2022-07-04] MEDS ORDERED: NS 0.9% 1000 ml BAG 1,000 ML IV SCH (18:30)
[2022-07-04] MEDS ORDERED: Dextrose 50% Syringe 50 ml 25 GM/50 ML SYRINGE IV PUSH PRN (19:22)
[2022-07-04] MEDS ORDERED: Al Hydrox/Mg Hydrox/Simet LIQ 30 ML UDC PO PRN (19:23)
[2022-07-04] MEDS ORDERED: CMC:Pravastatin 20 mg TAB (NF) PO SCH (21:00)
[2022-07-05] MEDS ORDERED: Metoprolol Tartrate 5 mg VIAL 5 ml VIAL (1 mg/ml) IV ONE ×2 (00:28→00:42)
[2022-07-05 04:22] LABS: Hematocrit 47 % (42-52); Hemoglobin 15.6 g/dL (14.0-18.0); Mean Corpuscular HGB Conc 33 g/dL (31-36); Mean Corpuscular Hemoglobin 31 pg (27-31); Mean Corpuscular Volume 93 fL (80-94); Mean Platelet Volume 7.9 fL (7.4-10.4); Platelet Count 158 10^3/uL (150-450); Red Cell Distribution Width 14 % (10-15); White Blood Count 6.9 10^3/uL (3.5-10.8)
[2022-07-05 05:09] LABS: Albumin 3.9 g/dL (3.2-5.2); Albumin/Globulin Ratio 1.8 (1-3); Calcium 8.7 mg/dL (8.6-10.3); Globulin 2.2 g/dL (2-4); Magnesium 1.9 mg/dL (1.9-2.7); Potassium 3.8 mmol/L (3.5-5.0); Total Bilirubin 0.3 mg/dL (0.2-1.0); Total Protein 6.1 g/dL (6.4-8.9); eGFR CKD-EPI 73.9 (>60)
[2022-07-05] MEDS ORDERED: Potassium Chlor 20 meq TAB.ER PO ONE (05:39)
[2022-07-05] MEDS ORDERED: Digoxin IV 0.5 MG/2 ML AMP (0.25 MG/ML) IV SLOW PU ONE (08:17)
[2022-07-05 08:55] LABS: TSH Ultra Thyroid Stim Horm 3.15 mcIU/mL (0.34-5.60)
[2022-07-05 08:56] LABS: Free T3 2.7 pg/mL (2.5-3.9)
[2022-07-05 08:57] LABS: Free T4 0.82 ng/dL (0.61-1.12)
[2022-07-05] MEDS ORDERED: CMC:Pravastatin 20 mg TAB (NF) PO SCH (09:00)
[2022-07-05] MEDS ORDERED: Sulfur Hexaflouride MICROSPHR 25 MG VIAL ONE (14:01)
[2022-07-05 20:30] VITALS: BP 112/73
== END 2022-07-05 20:15 | disposition left against medical advice (07) ==
LOC: ED 17:13 → INTOOBSV 19:04 → ICU 19:04